=== PATIENT | female | born 1950 | race Caucasian/White ===

== ENCOUNTER 2024-05-28 13:05 | Emergency (ER) | payer OTHER ==
[2024-05-28] MEDS ORDERED: LABETALOL HCL 20 MG/4 ML VIAL ONE (14:04)
[2024-05-28] MEDS: LABETALOL HCL 5 MG/1 ML (100MG/20 ML VIAL) IVPUSH ONE (14:10)
[2024-05-28 14:11] LABS: BASO % 0.8 % (0-2.0); EOS % 0.6 % (0-4.5); HEMATOCRIT 41.5 % (32.4-45.2); HEMOGLOBIN 14.1 GM/dL (10.7-15.3); LYMPH % 30.1 % (8-40); MCH 31.5 pg (25.7-33.7); MEAN CELL VOLUME 92.8 fl (80-96); MEAN PLT VOLUME 7.5 fl (7.5-11.1); MONO % 5.6 % (3.8-10.2); NEUT % 62.9 % (42.8-82.8); PLATELET COUNT 257 10^3/uL (134-434); RBC 4.47 M/mm3 (3.60-5.2); WHITE BLOOD COUNT 7.3 K/mm3 (4.0-10.0)
[2024-05-28 14:16] LABS: INR 0.94 (0.83-1.09); PROTHROMBIN TIME (PATIENT) 10.8 SEC (9.7-13.0)
[2024-05-28 14:18] LABS: ACTIVATED PTT 34.8 SECONDS (25.2-36.5)
[2024-05-28 14:32] LABS: POTASSIUM 4.1 mmol/L (3.5-5.1)
[2024-05-28 14:33] LABS: MAGNESIUM 2.2 mg/dL (1.8-2.4)
[2024-05-28 14:34] LABS: ALBUMIN 4.2 g/dl (3.4-5.0); CALCIUM 9.8 mg/dL (8.5-10.1)
[2024-05-28 14:38] LABS: CREATININE 0.6 mg/dL (0.55-1.3)
[2024-05-28 14:40] LABS: BILIRUBIN,TOTAL 0.5 mg/dL (0.2-1)
[2024-05-28 17:47] VITALS: BP 178/59; PULSE 68; RESP 17; TEMP 98.4
== END 2024-05-28 20:27 | disposition short-term general hospital (02) ==
LOC: JER 13:05
PROC: 3E033GC Introduction of Other Therapeutic Substance into Peripheral Vein, Percutaneous Approach (ICD-10-PCS; principal; 2024-05-28)
DX: R00.2 Palpitations (principal); R20.0 Anesthesia of skin; R20.2 Paresthesia of skin; I82.B12 Acute embolism and thrombosis of left subclavian vein; R03.0 Elevated blood-pressure reading, without diagnosis of hypertension; Z20.822 Contact with and (suspected) exposure to COVID-19
CPT/HCPCS: 0241U-QW; 36415; 71275-TC; 74174-TC; 80053; 83735; 84439; 84443; 84484; 85025; 85610; 85730; 86850; 86900; 86901; 93005; 93010; 99291; Q9967